=== PATIENT | female | born 1970 ===

== ENCOUNTER → 2018-09-14 | Outpatient (CLI) | payer BC ==
--- NOTE | 2018-09-14 16:47 | RADIOLOGY IMAGING REPORT ---
FACILITY: [facility] PATIENT NAME: Jacqueline Centeno : 1970 MR: [id number] V: [id number] EXAM DATE: ORDERING PHYSICIAN: ALMITA CASTELLANOS TECHNOLOGIST: Location[place] [facility] [place] Patient: Jacqueline Centeno : 1970 Visit/Account:[id number] Date of Sevice: 09/14/2018 Technique: CERVICAL SPINE 2 OR 3 VIEW HISTORY: Neck pain Comparison studies: None FINDINGS: There is no acute fracture. Reversal of the normal cervical lordosis is present. Interver tebral disc space narrowing and endplate osteophytosis is noted within the mid and lower cervical spi ne. The vertebral body heights are maintained. No prevertebral soft tissue swelling. IMPRESSION: 1. Degenerative changes as above. Report Dictated By: Benjamin Wilson DO at 09/14/2018 4:41 PM Report E-Signed By: Benjamin Wilson DO at 09/14/2018 4:43 PM [id number]
== END ==
LOC: RAD 15:41
PROVIDERS: ATTEND Nurse Practitioner Family
DX: M47.892 Other spondylosis, cervical region (principal)
CPT/HCPCS: 72040

== ENCOUNTER 2018-10-10 10:17 | Outpatient (RCR) | payer BC ==
--- NOTE | 2018-10-11 12:18 | RADIOLOGY IMAGING REPORT ---
FACILITY: [facility] - [place] PATIENT NAME: Jacqueline Centeno : 1970 MR: [id number] V: [id number] EXAM DATE: ORDERING PHYSICIAN: ALYSON VEGA TECHNOLOGIST: [place] [facility] [place] Patient: Jacqueline Centeno : 1970 Visit/Account:[id number] Date of Sevice: 10/11/2018 MR SPINE CERVICAL W/O CON COMPARISON: None Additional pertinent history: Neck pain with cervicalgia Technique: Multiplanar multisequence cervical spine MRI was performed without gadolinium enhancement. FINDINGS: Vertebral body height and alignment: Negative Vertebral marrow signal: Negative Vertebral bodies: Anteriorly and posteriorly directed osteophytes at C5-C6 and C6-C7. Cervical spinal cord signal, craniocervical junction and visualized posterior fossa: Negative Surrounding soft tissues: Negative Inspection of the disc spaces reveal the following: C1-C2: Negative C2-C3: Minimal circumferential disc bulging with facet hypertrophic changes. No significant canal or neural foraminal narrowing. C3-C4: Posterior broad-based disc protrusion with facet hypertrophic changes. Mild right-sided neura l foraminal narrowing. No significant left-sided neural foraminal narrowing. No canal stenosis. C4-C5: Circumferential disc bulging with facet and uncovertebral degenerative changes. No significan t canal or neural foraminal narrowing. C5-C6: Posterior broad-based disc protrusion with facet and uncovertebral degenerative changes. Mode rate bilateral neural foraminal narrowing with mild canal stenosis. C6-C7: Posterior broad-based disc protrusion with facet hypertrophic changes. Severe bilateral neura l foraminal narrowing with moderate canal stenosis. C7-T1: Negative Impression: 1. Multilevel spondylitic change as discussed above. 2. Findings felt to be potentially most significant at C6-C7 with moderate canal stenosis and severe bilateral neural foraminal narrowing. Report Dictated By: Darion Kelly MD at 10/11/2018 12:10 PM Report E-Signed By: Darion Kelly MD at 10/11/2018 12:14 PM [id number]
== END 2018-11-14 ==
LOC: MRI 10:17
PROVIDERS: ATTEND Orthopaedic Surgery Orthopaedic Surgery of the Spine
DX: M48.02 Spinal stenosis, cervical region (principal)
CPT/HCPCS: 72141